=== PATIENT | female | born 1985 | race Caucasian/White ===

== ENCOUNTER → 2017-02-26 | Outpatient (CLI) | payer BC | END | disposition home or self-care (01) | LOC: CFH 06:28 | PROVIDERS: ATTEND Family Medicine | DX: K46.9 Unspecified abdominal hernia without obstruction or gangrene (principal) | CPT/HCPCS: 76705 ==

== ENCOUNTER 2017-02-28 11:37 | Emergency (ER) | payer BC ==
[~2017-02-28] VITALS: Ht 170.2 cm; Wt 64.0 kg
[2017-02-28 11:40] VITALS: BP 125/80
[2017-02-28] MEDS ORDERED: SODIUM CHLORIDE FLUSH 10ML SYR IVF ONE (13:00)
[2017-02-28 13:14] LABS: HEMATOCRIT 38.8 % (34.6-47.8); HEMOGLOBIN 13.1 g/dL (11.7-16.4); WHITE BLOOD COUNT 4.9 x10^3/uL (3.4-10)
[2017-02-28 13:25] LABS: BLOOD UREA NITROGEN 12 mg/dL (7-18)
[2017-02-28] MEDS ORDERED: OMNIPAQUE 350 MG/ML, 100ML BOTTLE ONE (14:13)
== END 2017-02-28 15:18 | disposition home or self-care (01) ==
LOC: ED 15:09
DX: K43.9 Ventral hernia without obstruction or gangrene (principal)
CPT/HCPCS: 36415; 74177; 80048; 82040; 84703; 85025; 99285; Q9967

== ENCOUNTER 2017-07-01 14:51 | Day surgery (SDC) | payer OTHER ==
[~2017-07-01] VITALS: Ht 170.2 cm; Wt 67.3 kg
[2017-07-01] MEDS ORDERED: LACTATED RINGERS 1,000 ML IV SCH ×2 (15:26→19:00)
[2017-07-01 15:31] VITALS: BP 103/68
[2017-07-01] MEDS ORDERED: FENTANYL PF 100 MCG/2ML ONE (15:58)
[2017-07-01] MEDS ORDERED: MIDAZOLAM 1 MG/ML, 2ML ONE (15:58)
[2017-07-01] MEDS ORDERED: ACETAMINOPHEN 500 MG TABLET PO ONE (16:00)
[2017-07-01] MEDS ORDERED: SCOPOLAMINE PATCH, 1.5MG PATCH.TD72 TD ONE ×2 (16:00→16:01)
[2017-07-01] MEDS ORDERED: GABAPENTIN 300 MG CAPSULE PO ONE (16:00)
[2017-07-01] MEDS ORDERED: FAMOTIDINE 20 MG TABLET PO ONE (16:00)
[2017-07-01] MEDS ORDERED: GABAPENTIN 300 MG CAPSULE ONE (16:00)
[2017-07-01] MEDS ORDERED: FAMOTIDINE 20 MG TABLET ONE (16:01)
[2017-07-01] MEDS ORDERED: ACETAMINOPHEN 500 MG TABLET ONE (16:03)
[2017-07-01 16:15] LABS: HCG UR SG 1.007 (1.003-1.030)
[2017-07-01] MEDS ORDERED: KETOROLAC 30 MG/1 ML ONE (16:35)
[2017-07-01] MEDS ORDERED: EPINEPHRINE 1 MG/ML, 1ML ONE (16:49)
[2017-07-01] MEDS ORDERED: BUPIVACAINE/PF 0.5% ONE (16:49)
[2017-07-01] MEDS ORDERED: PROPOFOL 10 MG/ML, 20ML ONE (17:02)
[2017-07-01] MEDS ORDERED: SUCCINYLCHOLINE 20 MG/ML, 10ML ONE (17:02)
[2017-07-01] MEDS ORDERED: CEFAZOLIN 1,000 MG ONE (17:02)
[2017-07-01] MEDS ORDERED: NEOSTIGMINE 1 MG/ML, 10ML ONE (17:02)
[2017-07-01] MEDS ORDERED: ROCURONIUM 10 MG/ML,10ML ONE (17:02)
[2017-07-01] MEDS ORDERED: DEXAMETHASONE 4 MG/ML, 1ML ONE (17:02)
[2017-07-01] MEDS ORDERED: ONDANSETRON 2MG/ML, 2ML ONE (17:02)
[2017-07-01] MEDS ORDERED: GLYCOPYRROLATE 0.2MG/1ML, 5ML ONE (17:02)
[2017-07-01] MEDS ORDERED: EPHEDRINE 50 MG/ML, 1ML IVPush PRN (17:30)
[2017-07-01] MEDS ORDERED: PROMETHAZINE 12.5 MG SUPP PR PRN (17:30)
[2017-07-01] MEDS ORDERED: ALBUTEROL SULFATE 2.5 MG/3 ML NPPB PRN (17:30)
[2017-07-01] MEDS ORDERED: morphine SULFATE 10 MG/ML, 1ML IV PRN (17:30)
[2017-07-01] MEDS ORDERED: MIDAZOLAM 1 MG/ML, 2ML IV PRN (17:30)
[2017-07-01] MEDS ORDERED: DIAZEPAM 5 MG/ML, 2ML IVPush PRN (17:30)
[2017-07-01] MEDS ORDERED: FENTANYL PF 100 MCG/2ML IV PRN (17:30)
[2017-07-01] MEDS ORDERED: MEPERIDINE/PF 25MG/0.5ML IVPush PRN (17:30)
[2017-07-01] MEDS ORDERED: OXYcodone 5 MG/5 ML ORAL.SOL UDC PO PRN ×2 (17:30→19:00)
[2017-07-01] MEDS ORDERED: ONDANSETRON 2MG/ML, 2ML IVPush PRN ×2 (17:30→19:00)
[2017-07-01] MEDS ORDERED: HYDROcodone/APAP 7.5-325MG/15ML UDC PO PRN (17:30)
[2017-07-01] MEDS ORDERED: PROMETHAZINE 25 MG/ML, 1ML IV PRN (17:30)
[2017-07-01] MEDS ORDERED: DIPHENHYDRAMINE 50 MG/ML, 1ML IVPush PRN (19:00)
[2017-07-01] MEDS ORDERED: HYDROmorphone 2 MG/ML, 1ML IV PRN (19:00)
[2017-07-01] MEDS ORDERED: ONDANSETRON 4 MG TABLET PO PRN (19:00)
[2017-07-01] MEDS ORDERED: KETOROLAC 30 MG/1 ML IV PRN ×2 (19:00→23:00)
== END 2017-07-01 20:21 | disposition home or self-care (01) ==
LOC: OR 14:51 → 4NOR 18:20 → OR 20:21
PROVIDERS: ATTEND Surgery
DX: K43.7 Other and unspecified ventral hernia with gangrene (principal)
CPT/HCPCS: 49572; 81025; J0171; J0330; J0690; J1100; J1885; J2250; J2405; J2704; J2710; J3010; J3490; J7120